=== PATIENT | male | born 1940 ===

== ENCOUNTER 2024-04-16 09:23 | Outpatient (CLI) | payer OTHER | END 2024-04-16 09:29 | disposition home or self-care (01) | LOC: TOM 09:23 | PROVIDERS: ATTEND Internal Medicine Gastroenterology | DX: R19.5 Other fecal abnormalities (principal); Z12.11 Encounter for screening for malignant neoplasm of colon; K56.609 Unspecified intestinal obstruction, unspecified as to partial versus complete obstruction ==